=== PATIENT | female | born 1960 | race Caucasian/White ===

== ENCOUNTER 2017-04-12 13:30 | Inpatient (IN) | payer MEDICAID, OTHER ==
[~2017-04-12] VITALS: Ht 157.5 cm; Wt 61.2 kg
[2017-04-12] MEDS ORDERED: KETOROLAC 30MG/ML VIAL IV STA (13:53)
[2017-04-12 14:34] LABS: PROTHROMBIN TIME 10.7 sec (9.4-11.6)
[2017-04-12 14:36] LABS: BASOPHILS % 0.7 % (0.0-2.0); EOSINOPHILS % 2.6 % (0.0-5.0); HEMATOCRIT. 38.8 % (36.0-48.0); HEMOGLOBIN. 13.3 g/dL (12.0-16.0); LYMPHOCYTES % 45.7 % (20.0-50.0); MEAN CORPUSCULAR HEMOGLOBIN 29.8 pg (28.0-32.0); MEAN PLATELET VOLUME 8.5 fl (7.4-10.4); MONOCYTES % 9.5 % (2.0-8.0); NEUTROPHILS % 41.5 % (40.0-76.0); PLATELET 264 x1000/uL (130-400); RED BLOOD CELL COUNT 4.46 mill/uL (4.2-5.4); RED CELL DISTRIBUTION WIDTH 13.2 % (11.6-14.6)
[2017-04-12 14:41] LABS: CARBON DIOXIDE 25 mEq/L (21-32); CHLORIDE 111 mEq/L (98-107)
[2017-04-12 14:44] LABS: TROPONIN I < 0.02 ng/mL (0.00-0.04)
[2017-04-12] MEDS ORDERED: ACETAMINOPHEN 325MG TABLET PO PRN (16:00)
[2017-04-12] MEDS ORDERED: MORPHINE SULFATE 4 MG/ML CPJ (NOT FOR IM USE) IV ONE (16:00)
[2017-04-12] MEDS ORDERED: IBUPROFEN 600MG TABLET PO PRN (16:00)
[2017-04-12 22:00] VITALS: BP 128/62
[2017-04-13] VITALS (7 sets, daily range): BP systolic 101–128; BP diastolic 48–71
[2017-04-13] MEDS ORDERED: CLONIDINE 0.1MG TABLET PO PRN (00:15)
[2017-04-13] MEDS ORDERED: MORPHINE SULFATE 4 MG/ML CPJ (NOT FOR IM USE) IV PRN (00:15)
[2017-04-13] MEDS ORDERED: ONDANSETRON HCL 4MG/2ML VIAL IV PRN (00:15)
[2017-04-13] MEDS: ASPIRIN 81MG TABLET PO SCH (09:55)
[2017-04-13] MEDS: LEVOFLOXACIN 500MG PREMIX 100 ML IV SCH (17:13)
[2017-04-14] VITALS: BP 102/51
[2017-04-14 04:00] VITALS: BP 118/61
[2017-04-14 08:00] VITALS: BP 123/75
[2017-04-14] MEDS: ASPIRIN 81MG TABLET PO SCH (09:11)
[2017-04-14 12:00] VITALS: BP 122/69
[2017-04-14 14:00] VITALS: BP 126/72
[2017-04-14] MEDS: LEVOFLOXACIN 500MG PREMIX 100 ML IV SCH (14:30)
== END 2017-04-14 18:00 | disposition home or self-care (01) | DRG 203 ==
LOC: ER 15:15 → 6WST 16:00 → ENRESERV 20:10 → 6WST 04-13 00:10
PROVIDERS: ADMIT Hospitalist; ATTEND Hospitalist
DX: M94.0 Chondrocostal junction syndrome [Tietze] (principal); J18.9 Pneumonia, unspecified organism; I25.2 Old myocardial infarction; I25.10 Atherosclerotic heart disease of native coronary artery without angina pectoris; Z86.73 Personal history of transient ischemic attack (TIA), and cerebral infarction without residual deficits
CPT/HCPCS: 36415; 71010; 80053; 83880; 84484; 85025; 85610; 93005; 96374; 96375; 99285; J1885; J1956; J2270; J7040